=== PATIENT | male | born 1955 | race Caucasian/White ===

== ENCOUNTER 2017-10-31 12:40 | Emergency (ER) | payer MEDICARE ==
[2017-10-31] MEDS ORDERED: Lidocaine 1% with EPINEPHrine 1:100,000 20 ML MDV ONE (13:00)
[2017-10-31] MEDS ORDERED: cloNIDine 0.1 MG Tab PO ONE (13:23)
[2017-10-31] MEDS ORDERED: cloNIDine 0.1 MG Tab ONE (13:25)
--- NOTE | 2017-10-31 17:23 | EDM.PDOC ---
ED HPI GENERAL MEDICAL PROBLEM - General Time Seen by Provider: 10/31/17 12:50 Source of Information: Reports: Patient History Limitations: Reports: No Limitations - History of Present Illness INITIAL COMMENTS - FREE TEXT/NARRATIVE: According to patient he was cutting a tree down today. When the tree fell down one of the branches hit his head and sustained an open laceration of the scalp , which has been bleeding. There was no loss of consciousness with injury. No dizziness, headache, nausea or vomiting. No bleeding from ENT.Pt claim he feels fine. His last tetanus was within 5 year according to him. No other injuries. Onset: Today Onset Date: 10/31/17 Onset Time: 12:00 Location: Reports: Head Severity: Mild Improves with: Reports: None Worsens with: Reports: None Associated Symptoms: Denies: Confusion, Chest Pain, Cough, Diaphoresis, Fever/ Chills, Headaches, Loss of Appetite, Malaise, Nausea/Vomiting, Rash, Seizure, Shortness of Breath, Syncope, Weakness - Related Data Allergies Allergy/AdvReac Type Severity Reaction Status Date / Time No Known Allergies Allergy Verified 10/31/17 12:55 Home Meds: Home Meds Lisinopril 20 mg PO DAILY 10/31/17 [History] ED ROS GENERAL - Review of Systems Review Of Systems: See Below Constitutional: Denies: Fever, Chills HEENT: Denies: Ear Pain, Eye Discharge, Eye Pain, Nosebleed, Rhinitis, Throat Pain, Throat Swelling, Vision Change Respiratory: Denies: Cough, Sputum Cardiovascular: Denies: Chest Pain, Lightheadedness GI/Abdominal: Denies: Nausea, Vomiting : Denies: Dysuria Skin: Denies: Bruising, Pruritis, Rash Neurological: Denies: Confusion, Dizziness, Headache, Numbness, Paresthesia, Syncope, Tingling, Tremors, Trouble Speaking, Difficulty Walking, Weakness, Change in Speech, Gait Disturbance ED EXAM, GENERAL - Physical Exam Exam: See Below Exam Limited By: No Limitations General Appearance: Alert, WD/WN, No Apparent Distress Eye Exam: Bilateral Eye: EOMI, PERRL Ears: Normal External Exam, Normal Canal, Hearing Grossly Normal, Normal TMs Ear Exam: Bilateral Ear: Auricle Normal, Canal Normal, TM normal Nose: Normal Inspection, Normal Mucosa, No Blood Throat/Mouth: Normal Inspection, Normal Lips, Normal Teeth, Normal Gums, Normal Oropharynx, Normal Voice, No Airway Compromise Head: Normocephalic, Other (There is a 5 cms long scalp laceration over the vertex of the head. the wound is gapping and bleeding. Minimal tenderness aroudn the laceration.). No: Facial Swelling, Facial Tenderness, Sinus Tenderness Neck: Normal Inspection, Supple, Non-Tender, Full Range of Motion Respiratory/Chest: No Respiratory Distress, Lungs Clear, Normal Breath Sounds, No Accessory Muscle Use, Chest Non-Tender Cardiovascular: Normal Peripheral Pulses, Regular Rate, Rhythm, No Edema, No Gallop, No JVD, No Murmur, No Rub Extremities: Normal Inspection, Normal Range of Motion, Non-Tender, Normal Capillary Refill, No Pedal Edema Neurological: Alert, Oriented, CN II-XII Intact, Normal Cognition, Normal Gait, Normal Reflexes, No Motor/Sensory Deficits ED GENERAL MEDICAL PROCEDURES - Laceration/Wound Repair Head Lac/wound length in cm: 5 (Scalp laceration) Appearance: Irregular Distal NVT: Neuro & Vascular Intact Anesthetic Type: Local Local Anesthesia - Lidocaine (Xylocaine): 1% with EPI Local Anesthetic Volume: 3cc Skin Prep: Providone-Iodine (Betadine) Saline irrigation (cc's): 50 Closed with: Vida # of Sutures: 8 Sterile Dressing Applied: Provider Tetanus Status Addressed: Yes Complications: No Course - Vital Signs Text/Narrative:: Pt reassured that he has 5 cm irregular laceration of the scalp. After consent was obtained the wound was cleaned and vida applied to approximate the margin. simple sterile dressing done. Pt advised not to wet the wound for 3 days, after which he should be okay to have shower, do not scrub the wound. keep it clean and dry with simple antibiotic dressing daily. Staple removal in 1 wk. Also symptoms of head injury discussed with patient. return if they occur in next 24 hrs. - Orders/Labs/Meds Meds: Medications Discontinued Medications Generic Name Dose Route Start Last Admin Trade Name Freq PRN Reason Stop Dose Admin Clonidine HCl Confirm 10/31/17 13:25 Catapres Administered 10/31/17 13:26 Dose 0.1 mg .ROUTE .STK-MED ONE Clonidine HCl 0.1 mg 10/31/17 13:23 Catapres PO 10/31/17 13:24 ONETIME ONE Departure - Departure Time of Disposition: 13:30 Disposition: Home, Self-Care 01 Condition: Good Clinical Impression: Scalp laceration - Discharge Information Instructions: Head Injury, Adult, Laceration Care, Adult Referrals: PCP,None [Primary Care Provider] - - Problem List & Annotations (1) Scalp laceration SNOMED Code(s): 032500438 Code(s): S01.01XA - LACERATION WITHOUT FOREIGN BODY OF SCALP, INITIAL ENCOUNTER Status: Acute Current Visit: Yes - Problem List Review Problem List Initiated/Reviewed/Updated: Yes - Assessment/Plan Assessment:: Scalp laceration Plan: Pt reassured that he has 5 cm irregular laceration of the scalp. After consent was obtained the wound was cleaned and vida applied to approximate the margin. simple sterile dressing done. Pt advised not to wet the wound for 3 days, after which he should be okay to have shower, do not scrub the wound. keep it clean and dry with simple antibiotic dressing daily. Staple removal in 1 wk. Also symptoms of head injury discussed with patient. return if they occur in next 24 hrs.
== END 2017-10-31 13:40 | disposition home or self-care (01) ==
LOC: LB.ED 12:40
DX: S01.01XA Laceration without foreign body of scalp, initial encounter (principal); Z79.899 Other long term (current) drug therapy; W20.8XXA Other cause of strike by thrown, projected or falling object, initial encounter
CPT/HCPCS: 12002; 99282; 99282-25

== ENCOUNTER 2019-02-18 10:08 | Day surgery (SDC) | payer MEDICARE, MEDICAID ==
[~2019-02-18 10:08] MED LIST: Metoclopramide 10 MG/2 ML SDV IV PRN; Sodium Chloride 0.9% 1,000 ML IV SCH
[2019-02-18] MEDS ORDERED: Midazolam 1 MG/ML 2 ML SDV ONE (14:30)
[2019-02-18] MEDS ORDERED: Propofol 200 MG/20 ML SDV ONE (14:30)
[2019-02-18] MEDS ORDERED: Atropine 0.4 MG/ML SDV ONE (14:30)
--- NOTE | 2019-02-18 14:57 | OR ---
DATE OF OPERATION: 02/18/2019 PREOPERATIVE DIAGNOSIS: History of colon polyps. POSTOPERATIVE DIAGNOSIS: History of colon polyps. PROCEDURE: Colonoscopy. ANESTHESIA: MAC. ESTIMATED BLOOD LOSS: None. COMPLICATIONS: None. INDICATION FOR THE PROCEDURE: The patient is a 64-year-old male, here today for surveillance colonoscopy. Last colonoscopy was 5 years ago and did have polyps at that time. No change in bowel habits since then. DESCRIPTION OF THE PROCEDURE: Informed consent was obtained with the patient. The patient was taken to the operating room and placed on the table in left lateral decubitus position. Monitored anesthesia care was administered. Digital rectal exam was performed and was normal. Colonoscope then was advanced through the anus and directed toward the cecum. Cecum was reached and identified by appendiceal orifice and ileocecal valve. Colonoscope then was slowly withdrawn. No polyps. No masses. No areas of ischemia or inflammation identified. Colonoscope was slowly withdrawn. Rectum was also otherwise unremarkable. Colonoscope was then withdrawn. FINDINGS: Normal colonoscopy. RECOMMENDATIONS: Due to personal history of polyps, we would recommend repeat surveillance colonoscopy in 5 years. MIRA /[id number]
== END 2019-02-18 15:47 | disposition home or self-care (01) ==
LOC: LB.SDS 10:08
PROVIDERS: ATTEND Surgery
DX: Z12.11 Encounter for screening for malignant neoplasm of colon (principal); Z86.010 Personal history of colon polyps
CPT/HCPCS: G0121; J0461; J2250; J2704; J7030

== ENCOUNTER 2022-02-03 17:11 | Emergency (ER) | payer MEDICARE ==
[2022-02-03] MEDS: Sodium Chloride 0.9% 1,000 ML IV ONE (17:35)
[2022-02-03 18:03] LABS: ESTIMATED GFR 7 mL/min (>60)
[2022-02-03] MEDS: Diltiazem 50 MG/10 ML SDV IVPUSH ONE (18:06)
[2022-02-03] MEDS: Sodium Bicarbonate 150 MEQ in Dextrose 5% in Water 1,000 ML IV ONE ×2 (19:25)
[2022-02-03] MEDS: Sodium Bicarbonate 100 MEQ in Dextrose 5% in Water 100 ML IV ONE ×2 (19:34)
[2022-02-03] MEDS: Diltiazem 25 MG/5 ML SDV IVPUSH ONE (19:59)
== END 2022-02-03 20:24 ==
LOC: LB.ED 17:11
DX: I21.4 Non-ST elevation (NSTEMI) myocardial infarction (principal); N17.9 Acute kidney failure, unspecified; I10 Essential (primary) hypertension; Z20.822 Contact with and (suspected) exposure to COVID-19
CPT/HCPCS: 36415; 71250; 74176; 80053; 82803; 82947; 83605; 83880; 84484; 85025; 85379; 87040; 93005; 96361; 96365; 96375; 96376; 99285-25; J3490; J7030; U0002

== ENCOUNTER 2022-02-27 19:34 | Emergency (ER) | payer MEDICARE ==
[2022-02-27] MEDS ORDERED: Sodium Chloride 0.9% 10 ML Syringe FLUSH PRN (20:22)
[2022-02-27 20:52] LABS: ESTIMATED GFR 8 mL/min (>60)
[2022-02-27 21:17] VITALS: BP 128/79; PULSE 81
== END 2022-02-27 22:43 ==
LOC: LB.ED 19:34
DX: R60.0 Localized edema (principal); N19 Unspecified kidney failure; D64.9 Anemia, unspecified; Z20.822 Contact with and (suspected) exposure to COVID-19
CPT/HCPCS: 36415; 80053; 81001; 83735; 83880; 85025; 93005; 93010; 99284; 99285; U0002